=== PATIENT | female | born 2005 | race Caucasian/White ===

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

== ENCOUNTER 2024-01-14 10:14 | Emergency (ER) | payer MEDICAID, SELFPAY ==
[2024-01-14 10:22] VITALS: BP 138/72; PULSE 100; RESP 16; TEMP 36.3; O2SAT 98; BMI 40.3
--- NOTE | 2024-01-14 11:21 | PC.NURSE ---
Pt attempting to remove her gauge in right ear today but cannot remove. Pt reports the gauge twists out from behind, but cannot get it off. Pt attempted to use pliers/tools at home with no success. Reports 2/10 ear pain with redness around her right ear lobe. Denies changes in her hearing.
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
[2024-01-14] MEDS: TET,DIPH,PERTUSS(ACELL),VAC/PF 0.5 ML SYRINGE IM (11:54)
[2024-01-14 11:55] VITALS: BP 115/72; PULSE 97; RESP 14; O2SAT 97
[2024-01-14] MEDS: BACITRACIN OINT 0.9 GM PCKT 1 APPLIC TOP (11:55)
== END 2024-01-14 12:03 | disposition home or self-care (01) ==
PROVIDERS: Emergency Provider Physician Assistant
DX: T16.1XXA Foreign body in right ear, initial encounter (principal); Z23 Encounter for immunization
CPT/HCPCS: 90471; 99283; 90715

== ENCOUNTER 2024-01-17 14:50 | Emergency (ER) | payer OTHER, MEDICAID, SELFPAY ==
[2024-01-17 15:02] VITALS: BP 149/79; PULSE 94; RESP 19; TEMP 37.6; O2SAT 98; BMI 39.4
--- NOTE | 2024-01-17 16:00 | PC.NURSE ---
pt states they called their dentist, Lasha, unable to be seen till April. it is getting worse daily, today she was unable to open her mouth due to the pain and her jaw locked up and she could not close it. at home remedies include tylenol, oraljel, hot and cold compresses. none have given satisfactory relief.
[2024-01-17 16:29] VITALS: BP 125/68; PULSE 90; RESP 18; O2SAT 99
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
[2024-01-17] MEDS: KETOROLAC 30 MG/ML VIAL IM (17:36)
[2024-01-17] MEDS: HYDROCODONE/ACET 5/325 TABLET 1 TAB PO (17:39)
== END 2024-01-17 17:43 | disposition home or self-care (01) ==
PROVIDERS: Emergency Provider Student in an Organized Health Care Education/Training Program
DX: K04.7 Periapical abscess without sinus (principal)
CPT/HCPCS: 99283; J1885